=== PATIENT | female | born 1960 | race Two or more races ===

== ENCOUNTER 2021-02-18 19:10 | Emergency (ER) | payer OTHER ==
[~2021-02-18] VITALS: Ht 154.9 cm; Wt 76.2 kg
--- NOTE | 2021-02-18 19:10 | NUR ---
TO ER BED 2, C/O PAIN ON LT SHOULDER S/P FALL WHILE WALKING OUTSIDE, A&OX4, BREATHING EVEN AND UNLABORED, AWAITING MD ALVARADO
--- NOTE | 2021-02-18 19:11 | NUR ---
waiting for provider to see patient - ER 2
--- NOTE | 2021-02-18 19:35 | NUR ---
RAD AT BEDSIDE
[2021-02-18] MEDS ORDERED: TRAMADOL HCL 50 MG TABLET ONE (19:37)
[2021-02-18] MEDS: TRAMADOL HCL 50 MG TABLET PO ONE (19:40)
--- NOTE | 2021-02-18 19:45 | NUR ---
PT REQUESTS PAIN MEDS, ADMINISTERED ORDERED.
[2021-02-18] MEDS ORDERED: TRAM50TA2 PO (20:52)
[2021-02-18] MEDS ORDERED: IBUP-1955 PO (20:52)
--- NOTE | 2021-02-18 21:00 | NUR ---
pt placed in left arm immobilizer and sling
--- NOTE | 2021-02-18 21:08 | NUR ---
Patient discharged to home in stable condition. Written and verbal after care instructions given. Patient verbalizes understanding of instruction. vss.
[2021-02-18 21:13] VITALS: BP 149/87
== END 2021-02-18 21:14 | disposition home or self-care (01) ==
LOC: ER 19:14
DX: S52.122A Displaced fracture of head of left radius, initial encounter for closed fracture (principal); S80.212A Abrasion, left knee, initial encounter; I10 Essential (primary) hypertension; W01.0XXA Fall on same level from slipping, tripping and stumbling without subsequent striking against object, initial encounter; Y93.89 Activity, other specified; Y92.89 Other specified places as the place of occurrence of the external cause; Y99.8 Other external cause status
CPT/HCPCS: 73020; 73060-TC; 73080-TC; 73090-TC; 73110

== ENCOUNTER 2021-10-14 18:27 | Emergency (ER) | payer OTHER ==
[~2021-10-14] VITALS: Ht 160 cm; Wt 81.6 kg
[~2021-10-14 18:27] MED LIST: IBUP-1955 PO; TRAM50TA2 PO
--- NOTE | 2021-10-14 18:51 | NUR ---
pt came in c/o blood in urine starting yesturday. pt is a/o x4.connected to monitor.
[2021-10-14] MEDS ORDERED: PANTOPRAZOLE 40 MG VIAL ONE (18:59)
[2021-10-14] MEDS: PANTOPRAZOLE 40 MG VIAL IV ONE (19:09)
[2021-10-14] MEDS: IV NS 0.9% 1,000 ML BAG IV ONE (19:09)
[2021-10-14 19:23] LABS: CALCIUM, SERUM 9.1 mg/dL (8.5-10.1); CREATININE 0.7 mg/dL (0.6-1.3); POTASSIUM 3.7 mmol/L (3.5-5.1)
[2021-10-14 19:29] LABS: BILIRUBIN,DIRECT 0.1 mg/dL (0.0-0.2); BILIRUBIN,TOTAL 0.5 mg/dL (0.2-1.0); TOTAL PROTEIN, SERUM 7.8 g/dL (6.4-8.2)
[2021-10-14 19:41] LABS: ALBUMIN 4.1 g/dL (3.4-5.0)
[2021-10-14 19:45] LABS: BASOPHILS % (AUTO) 0.3 % (0.0-2.0); EOSINOPHILS % (AUTO) 1.7 % (0.0-6.0); HEMATOCRIT 41 % (33-45); HEMOGLOBIN 13.7 g/dL (11.5-14.8); MEAN CORPUSCULAR HGB CONC 34 g/dl (31.0-36.0); MEAN CORPUSCULAR VOLUME 89 fL (82-100); MONOCYTES # (AUTO) 0.5 K/uL (0.1-1.30); MONOCYTES % (AUTO) 8.5 % (2.0-12.0); NEUTROPHILS # (AUTO) 2.9 K/uL (1.8-8.9); NEUTROPHILS % (AUTO) 52.5 % (43.0-81.0); PLATELET COUNT (AUTO) 167 K/uL (150-450); RED BLOOD CELL COUNT(AUTO) 4.62 MIL/uL (4.0-5.2); WHITE BLOOD COUNT (AUTO) 5.5 K/uL (4.3-11.0)
--- NOTE | 2021-10-14 20:04 | NUR ---
URINE COLLECTED AND SENT TO LAB
[2021-10-14 20:40] LABS: BILIRUBIN,URINE SMALL (NEGATIVE); COLOR,URINE YELLOW (YELLOW); LEUKOCYTE ESTERASE ,URINE NEGATIVE (NEGATIVE); NITRITE, URINE NEGATIVE (NEGATIVE); PH,URINE 7.5 (5.0-8.0); PROTEIN,URINE 30 mg/dl (NEGATIVE); UGLUCOSE NEGATIVE (NEGATIVE)
[2021-10-14 20:59] LABS: BACTERIA,URINE None seen /HPF (None Seen); RBC,URINE TOO NUMEROUS TO COUN /HPF (0-2); SQUAMOUS EPITHELIAL CELL,UR None Seen /HPF (None Seen); WBC,URINE NONE SEEN /HPF (0-3)
[2021-10-14] MEDS ORDERED: LACT10SO3 PO (21:07)
[2021-10-14] MEDS ORDERED: CEPH500C2 PO (21:07)
[2021-10-14 21:25] VITALS: BP 115/60
--- NOTE | 2021-10-14 21:25 | NUR ---
Patient discharged to home in stable condition. Written and verbal after care instructions given. Patient verbalizes understanding of instruction.
== END 2021-10-14 21:25 | disposition home or self-care (01) ==
LOC: ER 18:32
DX: R31.9 Hematuria, unspecified (principal); K59.00 Constipation, unspecified; I10 Essential (primary) hypertension; Z79.899 Other long term (current) drug therapy
CPT/HCPCS: 36415; 71045; 74176; 80048; 80076; 81001; 83690; 85025; 85730; 93005; 96361; 96374; 99285; C9113; J7030